=== PATIENT | male | born 1965 | race Hispanic/Latino ===

== ENCOUNTER 2019-01-28 14:00 | Inpatient (IN) | payer MEDICARE, MEDICAID ==
[2019-01-28] MEDS ORDERED: Succinylcholine Chloride 20 MG/ML 10 ml SYRINGE FS ONE ×2 (14:13→14:21)
[2019-01-28] MEDS ORDERED: fentaNYL Citrate/PF 2,000 MCG in Sodium Chloride 0.9% 60 ML IV SCH ×2 (14:21→17:37)
[2019-01-28] MEDS ORDERED: Acetaminophen 325 MG/10.15 ML UDCUP ONE (14:28)
[2019-01-28] MEDS ORDERED: Acetaminophen 650 MG Suppository ONE (14:28)
[2019-01-28] MEDS ORDERED: Acetaminophen 325 MG Suppository ONE (14:28)
[2019-01-28 14:35] LABS: Actual Bicarbonate (HCO3a) 22.5 mEq/L (22-28); Analyzer IN Cardio ER; Base Excess (BEa) -11.1 mEq/L (-2.0 to +3.0); Calcium, Ionized 1.16 mmol/L (1.12-1.30); Carboxyhemoglobin (COHb) 2.4 gm% (0.0-3.0); O2 Tension (PaO2) 96.3 mmHg (80.0-100.0); Potassium - ABG Lab 5.12 mmol/L (3.70-5.30)
[2019-01-28 14:36] LABS: CO2 Tension 91.1 mmHg (35.0-45.0); pH, Arterial 7.01 (7.35-7.45)
[2019-01-28 14:37] LABS: ALV-art Gradient 502.825 (0-20); Puncture Site RBRACH
[2019-01-28] MEDS ORDERED: Midazolam HCl 5 mg/ml Vial ONE ×2 (14:37→15:12)
[2019-01-28 14:38] LABS: #Basophils 0.1 thou/uL (0.0-0.2); #Eosinphils 0.2 thou/uL (0.0-0.7); #Lymphocytes 2.1 thou/uL (1.20-3.40); #Monocytes 0.7 thou/uL (0.11-0.59); #Neutrophils 9.3 thou/uL (1.40-6.50); %Basophils 0.8 % (0.0-1.0); %Eosinophils 1.3 % (0.0-10.0); %Lymphocytes 16.9 % (21.0-51.0); Hemoglobin 15.2 g/dL (14.0-18.0); Mean Corpuscular HGB CONC 31.1 g/dL (32.0-36.0); Mean Corpuscular Hemoglobin 32.1 pg (27.0-31.0); RBC Distribution Width 12.7 % (11.5-14.5); Red Blood Cell (RBC) Count 4.73 mill/uL (4.70-6.10); White Blood Cell (WBC) Count 12.4 thou/uL (4.8-10.8)
--- NOTE | 2019-01-28 14:45 | RAD ---
FRONTAL VIEW CHEST: 01/28/19 COMPARISON: 12/11/18 INDICATION: Emergency exam, difficulty breathing. FINDINGS: There is prominent edema. Enlargement of the cardiac silhouette and pulmonary vasculature. Probable b ilateral pleural fluid present. Left sided AICD remains. There is extensive artifact limiting detail. IMPRESSION: Findings favor decompensated CHF. Superimposed opacity related to pneumonia/pneumonitis not excluded. Recommend clinical correlation as well as imaging follow-up. POS: [facility]
[2019-01-28 14:49] LABS: Large Platelets SLIGHT; MDiff Complete? YES; Mean Platelet Volume 11.5 fL (7.4-10.4); Platelet Count 155 thou/uL (130-400); Platelet Morphology Comment Appears Adequate; RBC Morphology Normal
[2019-01-28 14:51] LABS: ALT (SGPT) 120 U/L (8-55); AST (SGOT) 153 U/L (5-34); Albumin 4.2 g/dL (3.5-5.0); Alkaline Phosphatase 138 U/L (40-150); Anion Gap 15 mmol/L (10-20); BUN (Urea Nitrogen) 10 mg/dL (8.4-25.7); Bilirubin, Total 0.9 mg/dL (0.2-1.2); Calc. Creatinine Clearance 0 mL/min (70-130); Calcium 8.8 mg/dL (7.8-10.44); Carbon Dioxide 23 mmol/L (22-29); Chloride 104 mmol/L (98-107); Estimated GFR-MDRD 66; Globulin 3.3 g/dL (2.4-3.5); Glucose 333 mg/dL (70-105); Potassium 4.6 mmol/L (3.5-5.1); Protein, Total 7.5 g/dL (6.0-8.3); Sodium 137 mmol/L (136-145)
[2019-01-28 14:54] LABS: Actual Bicarbonate (HCO3a) 24.7 mEq/L (22-28); Analyzer IN Cardio ER; Base Excess (BEa) -7.7 mEq/L (-2.0 to +3.0); Calcium, Ionized 1.15 mmol/L (1.12-1.30); Carboxyhemoglobin (COHb) 2.2 gm% (0.0-3.0); Hemoglobin (Hb) 15.9 g/dL (14.0-18.0); O2 Tension (PaO2) 172.9 mmHg (80.0-100.0); Potassium - ABG Lab 4.82 mmol/L (3.70-5.30)
[2019-01-28 14:56] LABS: CO2 Tension 85.4 mmHg (35.0-45.0); pH, Arterial 7.08 (7.35-7.45)
[2019-01-28 14:57] LABS: Puncture Site LRA
[2019-01-28 15:01] LABS: Bilirubin Negative (Negative); Blood, Urine 2+ (Negative); Clarity Extra Turbid (Clear); Glucose, Urine (Dipstick) 500 mg/dL (Negative); Leukocyte 25 Leu/uL (Negative); Nitrite Negative (Negative); Protein, Urine (Dipstick) 300 mg/dL (Neg-Trace)
[2019-01-28 15:06] LABS: Bacteria/HPF None Seen HPF (None Seen); RBC/HPF 0-3 HPF (0-3); Sperm/HPF 4+ HPF (None Seen); Squamous Epithelial None Seen HPF (0-3); WBC/HPF 0-3 HPF (0-3)
[2019-01-28] MEDS ORDERED: Propofol 1,000 MG/100 ML VIAL IV ONE ×2 (15:12→16:39)
[2019-01-28] MEDS ORDERED: Piperacillin/Tazobactam 4.5 GM VIAL ONE (15:20)
[2019-01-28] MEDS ORDERED: Vancomycin HCl 1.5 GM in Sodium Chloride 0.9% 250 ML 300 ML IVPB SCH (15:30)
--- NOTE | 2019-01-28 15:59 | CT ---
CT BRAIN WITHOUT CONTRAST: 01/28/19 HISTORY: Seizure, diaphoresis, CVA, left sided deficits. COMPARISON: 09/26/17. Old large right MCA infarction is again seen. The ventricular size is stable and the basilar cisterns patent. No evidence of acute infarct, hemorrhage, midline shift or abnormal extra-axial fluid collections are seen. The bony calvarium is intact. There is mucosa disease in the paranasal sinuses. IMPRESSION: No CT evidence of acute intracranial process. POS: [facility]
--- NOTE | 2019-01-28 16:17 | RAD ---
CHEST ONE VIEW: 01/28/19 HISTORY: Chest pain, shortness of breath. COMPARISON: Chest radiograph same day. FINDINGS: The AICD/pacer is in place. There is asymmetric right perihilar opacity. Moderate right pleural effu hiral. No definite left sided opacity is appreciated. Enteric tube tip below diaphragm out of field of view. There is what appears to be an endotracheal tu be with tip above the madie approximately 3 cm. IMPRESSION: 1. Large right perihilar opacity concerning for multifocal right sided pneumonia and layering pa rapneumonic effusion. 2. Cardiomegaly and mild pulmonary venous congestion. 3. Enteric tube tip below diaphragm out of field of view. 4. Endotracheal tube tip above the madie approximately 3 cm. POS: HOME
[2019-01-28] MEDS ORDERED: Sodium Chloride 0.9% 1,000 ML IV SCH (17:30)
[2019-01-28] MEDS ORDERED: Ventilator Sedation Protocol 1 EACH FS ONE (17:30)
[2019-01-28] MEDS ORDERED: Morphine 2 MG/ML SYRINGE SLOW IVP PRN (17:37)
[2019-01-28] MEDS ORDERED: Propofol BOLUS 1,000 MG/100 ML VIAL IV PRN (17:37)
[2019-01-28] MEDS ORDERED: Fentanyl BOLUS 250 ML IVPB PRN (17:37)
[2019-01-28] MEDS ORDERED: Propofol 1,000 MG/100 ML VIAL IV PRN (17:37)
[2019-01-28] MEDS ORDERED: Lorazepam 2 MG/ML VIAL SLOW IVP PRN (17:37)
[2019-01-28] MEDS ORDERED: DISCONTINUE PREVIOUS NARCOTIC PAIN MEDICATIONS AND BENZODIAZEPINES FS SCH (17:37)
[2019-01-28] MEDS: cefTRIAXone\\ROCEPHIN 1 GM in Sodium Chloride 0.9% 100 ML IVPB SCH (18:23)
[2019-01-28] MEDS ORDERED: Bisacodyl 10 MG SUPP PR PRN (18:55)
[2019-01-28] MEDS ORDERED: CCU Electrolyte Replacement 1 EACH IVPB ONE (18:55)
[2019-01-28] MEDS ORDERED: Acetaminophen 650 MG/20.3 ML UDCUP PO PRN (18:55)
[2019-01-28] MEDS ORDERED: SYSTANE 3.5 GM TUBE EA EYE PRN (18:55)
[2019-01-28] MEDS ORDERED: Acetaminophen 650 MG Suppository PR PRN (18:55)
[2019-01-28] MEDS ORDERED: Insulin Regular 300 UNITS/3 ML VIAL SC PRN ×2 (18:55)
[2019-01-28] MEDS ORDERED: Dextrose 50% Abboject 50 ML SYRINGE SLOW IVP PRN (18:59)
[2019-01-28] MEDS ORDERED: Dextrose 5% in Water 1,000 ML IV PRN (18:59)
[2019-01-28] MEDS ORDERED: Furosemide 100 MG in Sodium Chloride 0.9% 90 ML IVPB SCH (19:00)
[2019-01-28] MEDS ORDERED: Magnesium Oxide 400 MG TAB PO PRN ×2 (19:12)
[2019-01-28] MEDS ORDERED: Magnesium 2 GM/50 ML 2 GM in Premix Bag 1 BAG IVPB PRN (19:12)
[2019-01-28] MEDS ORDERED: CCU ELECTROLYTE REPLACEMENT PROTOCOL FS PRN (19:12)
[2019-01-28] MEDS ORDERED: Potassium Chloride 40 MEQ in Premix Bag 1 BAG IVPB PRN (19:12)
[2019-01-28] MEDS ORDERED: Potassium Chloride 40 MEQ in Sodium Chloride 0.9% 250 ML 250 ML IVPB PRN (19:12)
[2019-01-28] MEDS ORDERED: Potassium Phosphate 9 MMOL in Sodium Chloride 0.9% 100 ML IVPB PRN (19:12)
[2019-01-28] MEDS ORDERED: Potassium Phosphate 15 MMOL in Sodium Chloride 0.9% 250 ML 250 ML IV PRN (19:12)
[2019-01-28] MEDS ORDERED: PHOS-NAK 1 PKT PACK PO PRN ×2 (19:12)
[2019-01-28] MEDS ORDERED: Potassium Chloride 20 MEQ TAB PO PRN (19:12)
[2019-01-28] MEDS ORDERED: Potassium Phosphate 12 MMOL in Sodium Chloride 0.9% 250 ML 250 ML IV PRN (19:12)
[2019-01-28 19:22] LABS: CKMB 3.9 ng/mL (0-6.6)
--- NOTE | 2019-01-28 19:37 | HP ---
PRIMARY CARE PHYSICIAN: Alfredo Bojorquez MD. PRIMARY CHAIR: [place]. CHIEF COMPLAINT: Seizure. HISTORY OF PRESENT ILLNESS: The patient is a 54-year-old male with congestive heart failure, status post AICD, coronary artery disease, history of CVA with residual right-sided weakness, ongoing tobacco and alcohol abuse, atrial fibrillation, on anticoagulation, hypertension, diabetes mellitus type 2, and seizure disorder, was brought in by EMS after an episode of seizure. History obtained from his previous record as well as discussion with sister who is the DPOA. The patient currently lives at home with his family. He usually goes to the [facility] every day. Earlier today, he was found to have a seizure at the [facility]. He was short of breath and diaphoretic per EMS report. He was brought in to the emergency room on a nonrebreather. He was subsequently intubated in the emergency room. No information is available from the patient. He appeared normal to the family earlier today. There is no lower extremity swelling reported. PAST MEDICAL HISTORY: 1. Coronary artery disease, status post stent placement. He had a last cardiac catheterization in September 2017 that showed 40% to 50% stenosis in the left circumflex, 40% stenosis in the RCA, 60% to 70% stenosis in the LAD. 2. Chronic systolic heart failure, status post AICD that was inserted in 2007, hypertension. 3. Ongoing alcohol abuse. 4. Diabetes mellitus type 2. 5. Seizure disorder. 6. Ongoing tobacco abuse. 7. History of large right MCA distribution massive CVA 11 years ago with expressive aphasia and left hemiparesis . He had a feeding tube that was later discontinued. He stayed in the [facility] for 2 years. He currently ambulates without any assistance. He does not have any swallowing difficulty at this time per family report. 8. Chronic atrial fibrillation, on anticoagulation. PAST SURGICAL HISTORY: 1. AICD placement. 2. Cardiac catheterization. 3. PEG tube placement with subsequent removal. ALLERGIES: NO KNOWN DRUG ALLERGIES. CURRENT HOME MEDICATIONS: Family to bring accurate list of medications. FAMILY HISTORY: Negative for premature coronary artery disease. SOCIAL HISTORY: The patient is . He smokes on a daily basis. He drinks 2 beers every day. He is full code and surrogate decision maker is his sister at the bedside. REVIEW OF SYSTEMS: Cannot be obtained from the patient due to current cognitive status. PHYSICAL EXAMINATION: VITAL SIGNS: On ER arrival, temperature 101.4 rectally, respirations of 34, pulse rate of 110, blood pressure of 195/133, O2 saturation 93% on rebreather. GENERAL: A 54-year-old male, intubated, and sedated on mechanical ventilation. HEENT: Head, atraumatic and normocephalic. Sclerae anicteric. Moist mucous membranes. Endotracheal tube noted. NECK: Supple. JVD elevated. No carotid bruit. LUNGS: Bibasilar rales with scattered rhonchi. Minimal wheezing. Lungs were symmetrical. HEART: S1, S2 present. Regular. A 2/6 systolic murmur over the mitral area. ABDOMEN: Soft. Bowel sounds present. No rebound or guarding. No costovertebral angle tenderness. EXTREMITIES: Trace edema in bilateral lower extremity. No calf tenderness. SKIN: Warm and dry. LYMPH NODES: No palpable lymph nodes in the neck. PERIPHERAL VASCULAR: Radial pulses palpable bilaterally. MUSCULOSKELETAL: No joint swelling or tenderness. LABORATORY DATA: ABGs showed pH of 7.01 with pCO2 of 91.1 and PO2 of 96.3. Bicarbonate 22.5 on 100% non-rebreather. WBC 12.4 with platelet count 155, MCV 103, MCH 32.1. Chemistry showed sodium 137, potassium 4.6, chloride 104, bicarb 23, BUN 10, creatinine 1.1, glucose of 333, AST 153, ALT 120, BNP was 2805. IMAGING DATA: Chest x-ray by my review showed pulmonary vascular congestion with possible infiltrate. EKG by my review showed paced rhythm. CT scan of the brain was negative for acute findings. IMPRESSION: 1. Acute hypoxic and hypercapnic respiratory failure secondary to congestive heart failure/pneumonia. 2. Acute on chronic systolic/diastolic heart failure exacerbation. 3. Pneumonia, suspected pneumococcal. 4. Seizure, probably secondary to acute hypoxic and hypercapnic respiratory failure secondary to congestive heart failure/pneumonia. 5. History of seizure disorder, on Depakote. 6. Hypertension. 7. Diabetes mellitus type 2. 8. Chronic atrial fibrillation, on anticoagulation. 9. Coronary artery disease. 10. History of large right MCA distribution massive CVA 11 years ago with expressive aphasia and left hemiparesis. 11. Ongoing alcohol/tobacco abuse. 12. Elevated LFTs probably secondary to passive hepatic congestion. 13. Chronic kidney disease, stage 2. 14. Macrocytosis probably secondary to alcoholism. PLAN: The patient will be monitored in the intensive care unit. We will continue ventilation sedation protocol. Continue mechanical ventilation. We will start gentle Lasix drip. Consult Critical Care. Empiric antibiotics for pneumonia. We will check ammonia in a.m. Continue aspirin, Plavix, and Eliquis per ER medication list. Insulin sliding scale. We will verify other home medications. We will start thiamine, folic acid, and multivitamin. Echocardiogram will be obtained. Cardiology will be consulted. We will check labs on a daily basis. Plan was discussed with sister at the bedside. They stated understanding. Job ID: [id number] MTDD
[2019-01-28] MEDS: Amiodarone 200 MG TAB PER TUBE SCH (20:09)
[2019-01-28] MEDS: Apixaban 2.5 MG TAB PER TUBE SCH (20:09)
[2019-01-28] MEDS: Famotidine/PF 20 mg/2ml Vial SLOW IVP SCH (20:10)
[2019-01-28] MEDS ORDERED: Divalproex Sodium 250 MG (DR) TAB PER TUBE SCH (21:00)
[2019-01-29 05:24] LABS: ALT (SGPT) 81 U/L (8-55); AST (SGOT) 59 U/L (5-34); Albumin 3.2 g/dL (3.5-5.0); Alkaline Phosphatase 96 U/L (40-150); Anion Gap 10 mmol/L (10-20); Bilirubin, Direct 0.5 mg/dL (0.1-0.3); Calcium 8.3 mg/dL (7.8-10.44); Carbon Dioxide 25 mmol/L (22-29); Chloride 110 mmol/L (98-107); Magnesium 1.6 mg/dL (1.6-2.6); Potassium 3.2 mmol/L (3.5-5.1); Protein, Total 5.8 g/dL (6.0-8.3); Sodium 142 mmol/L (136-145)
[2019-01-29 05:30] LABS: Phosphorus 1.9 mg/dL (2.3-4.7)
[2019-01-29 05:31] LABS: BUN (Urea Nitrogen) 10 mg/dL (8.4-25.7); CK (CPK) 195 U/L (30-200); Calc. Creatinine Clearance 137 mL/min (70-130); Estimated GFR-MDRD Greater than 90; Glucose 106 mg/dL (70-105)
[2019-01-29 05:51] LABS: Mean Corpuscular Volume 99.2 fL (78.0-98.0)
[2019-01-29 05:53] LABS: #Eosinphils 0.1 thou/uL (0.0-0.7); #Lymphocytes 1.1 thou/uL (1.20-3.40); #Monocytes 0.4 thou/uL (0.11-0.59); #Neutrophils 3.7 thou/uL (1.40-6.50); %Basophils 0.8 % (0.0-1.0); %Eosinophils 1.5 % (0.0-10.0); %Lymphocytes 20.7 % (21.0-51.0); %Monocytes 8.2 % (0.0-10.0); %Neutrophils 68.8 % (42.0-75.0); Band 8 % (5-11); Eosinophils 4 % (0-10); Hemoglobin 12.8 g/dL (14.0-18.0); Lymphocytes 19 % (21-51); MDiff Complete? YES; Mean Corpuscular HGB CONC 32.3 g/dL (32.0-36.0); Mean Platelet Volume 11.1 fL (7.4-10.4); Monocytes 5 % (0-10); Neutrophil 63 % (42-75); Platelet Count 88 thou/uL (130-400); Platelet Morphology Comment Appears Decreased; RBC Distribution Width 12.7 % (11.5-14.5); White Blood Cell (WBC) Count 5.3 thou/uL (4.8-10.8)
[2019-01-29 07:09] LABS: Actual Bicarbonate (HCO3a) 23.3 mEq/L (22-28); Base Excess (BEa) 1.9 mEq/L (-2.0 to +3.0); CO2 Tension 27.8 mmHg (35.0-45.0); Calcium, Ionized 1.08 mmol/L (1.12-1.30); Carboxyhemoglobin (COHb) 1.2 gm% (0.0-3.0); Hemoglobin (Hb) 13.2 g/dL (14.0-18.0); O2 Tension (PaO2) 135.3 mmHg (80.0-100.0); Potassium - ABG Lab 3.32 mmol/L (3.70-5.30); pH, Arterial 7.54 (7.35-7.45)
[2019-01-29 07:20] LABS: Puncture Site RR
--- NOTE | 2019-01-29 07:48 | HP ---
HISTORY OF PRESENT ILLNESS: Mr. Madrigal is a 54-year-old obese gentleman, who apparently was at a senior daycare center when he apparently had a seizure activity and is brought into the hospital with respiratory distress and failure, where he is intubated. He now is going to be transferred to the ICU. The patient has been in and out of the hospital numerous times. There are several sitters at the bedside, who tells me that he has had a previous CVA with left-sided residual weakness, evidence of some expressive aphasia. Continues to smoke a pack a day. He was in the ER on 12/11/2018 with weakness. PAST MEDICAL HISTORY: 1. Congestive heart failure. 2. COPD. 3. Previous respiratory failure. 4. Previous pneumonia. 5. Diabetes. 6. Hypertension. 7. Depression. 8. Reflux. 9. Cardiac arrhythmias. 10. Atrial fibrillation. PAST SURGICAL HISTORY: Including an AICD that I see. MEDICATION: Home medicine included: 1. Metformin 1000 two a day. 2. Losartan 50 a day. 3. Potassium. 4. Divalproex one tablet 250. 5. Lasix 40 two a day. 6. ISMO 30. 7. . 8. Zoloft 50. 9. Simvastatin 10. 10. Omeprazole. 11. Coreg 3.125. 12. Amiodarone 200. 13. Aspirin. 14. Insulin. SOCIAL HISTORY: Tobacco as noted. Alcohol minimal. REVIEW OF SYSTEMS: Unobtainable. He is intubated, sedated. PHYSICAL EXAMINATION: VITAL SIGNS: Saturations are 95% on the vent, pulse is 80, blood pressure 110/80. CHEST: Extensive rhonchi and crackles. CARDIAC: Normal S1, S2. No gallops. ABDOMEN: No masses. NEUROLOGICAL: He is sedated. His pupils are equal. LABORATORY DATA: White count 12,000, H and H of 15 and 48, platelet count is normal. His PO2 is 172, pCO2 85, pH 7.08. His creatinine is normal, glucose 333, ALT is elevated at 120, AST is 153. Urine is turbid. His chest x-ray prior to intubation shows cardiomegaly with bilateral interstitial alveolar infiltrates consistent with CHF. IMPRESSION: 1. Respiratory failure, congestive heart failure. 2. Severe respiratory acidosis. 3. Morbid obesity and probably sleep apnea. 4. Cerebrovascular accident. 5. Atrial fibrillation. 6. Seizure activity. PLAN: The patient will be transferred to the ICU. Empiric antibiotics, neb treatments, and supportive care. Input from Cardiology. Serial exam. Wean when stable. 45-minute critical time. Job ID: [id number]
[2019-01-29] MEDS: Folic Acid 1 MG TAB PER TUBE SCH (07:53)
[2019-01-29] MEDS: Thiamine 100 MG TAB PER TUBE SCH (07:53)
[2019-01-29] MEDS: Amiodarone 200 MG TAB PER TUBE SCH (07:53)
[2019-01-29] MEDS: Clopidogrel Bisulfate 75 MG TAB PER TUBE SCH (07:53)
[2019-01-29] MEDS: Famotidine/PF 20 mg/2ml Vial SLOW IVP SCH (07:54)
[2019-01-29] MEDS: Apixaban 2.5 MG TAB PER TUBE SCH ×2 (07:55→20:17)
--- NOTE | 2019-01-29 08:04 | RAD ---
Chest AP view INDICATION: Intubation COMPARISON: January 28, 2019 FINDINGS: Tubes and Lines: Stable. Lungs:Perihilar airspace opacities, right greater than left are stable. Cardiac silhouette pulmonary vasculature:Cardiomegaly is stable and pulmonary vascular congestion rem ains prominent. Pleural spaces: Small pleural effusions persist Upper abdomen:No abnormality seen. Osseous structures: No acute abnormality. IMPRESSION: Stable exam. No pneumothorax
[2019-01-29] MEDS ORDERED: DC Sedation Protocol FS ONE (08:21)
[2019-01-29] MEDS ORDERED: Sodium Chloride 0.9% 1,000 ML IV SCH (08:24)
[2019-01-29] MEDS ORDERED: PHOS-NAK 1 PKT PACK PO SCH (08:30)
--- NOTE | 2019-01-29 08:53 | PRG ---
DATE OF SERVICE: 01/29/2019 SUBJECTIVE: This morning, he is awake, alert, responsive to my surprise. X-ray shows much improvement in his congestive heart failure, so we will stop the sedation. OBJECTIVE: NEUROLOGIC: He is awake, alert, and responsive. He is moving all 4 extremities. VITAL SIGNS: Pulse 74, blood pressure 120/76, saturations 100%, respiratory rate 18. CHEST: Reveals decreased breath sounds. No wheezing. CARDIAC: Normal S1, S2. No gallops. ABDOMEN: No masses. His I's and O's over the last 24 hours have been negative 425. LABORATORY DATA: Shows white count 5000, H and H 12 and 39, and platelet count is low at 88. Blood gas, PO2 135, pCO2 27, pH 7.54. Lytes are normal. Potassium 3.2. Liver function improved. IMPRESSION: 1. Respiratory failure, congestive heart failure, cardiomyopathy. 2. Seizure disorder. 3. Diabetes. PLAN: I will try and wean and extubate today. Otherwise, continue PT, supportive care. Await input from Cardiology. One-half hour of critical care time. Job ID: [id number]
[2019-01-29] MEDS ORDERED: Multivits W-Minerals Liquid 15mL UDCUP PER TUBE SCH (09:00)
[2019-01-29] MEDS ORDERED: DIVALPROEX 125 MG PO SCH (09:00)
[2019-01-29] MEDS ORDERED: Multivit, Therapeutic 1 TAB PER TUBE SCH (09:00)
[2019-01-29] MEDS ORDERED: Aspirin Chewable 81 MG TAB PER TUBE SCH (09:00)
[2019-01-29] MEDS ORDERED: Divalproex Sodium 125 mg Sprinkle Capsule PER TUBE SCH (09:00)
--- NOTE | 2019-01-29 10:27 | PRG ---
DATE OF SERVICE: 01/29/2019 SUBJECTIVE: A 54-year-old male with congestive heart failure, coronary artery disease, history of CVA with ongoing tobacco and alcohol abuse, hypertension, diabetes, and atrial fibrillation, on anticoagulation, was brought in to the emergency room by EMS with seizure. Due to persistent hypoxemia with altered mentation, he was intubated in the emergency room. He was placed on mechanical ventilation overnight. The patient was extubated this a.m. He denies any new complaints at this time. He has chronic expressive aphasia. He is following commands. He denies any chest pain, palpitations, nausea, or vomiting. CURRENT MEDICATIONS: Reviewed. OBJECTIVE: VITAL SIGNS: Temperature 98.5, blood pressure of 121/70, respirations of 21, and O2 saturation of 97% on 3 L nasal cannula. GENERAL: A 54-year-old male in no apparent distress. LUNGS: Showed bibasilar rales with scattered rhonchi. No significant wheezing. No significant accessory muscle use. HEART: S1 and S2 present. Regular rate and rhythm. No rubs or gallops. ABDOMEN: Soft and nontender. Bowel sounds present. No rebound or guarding. EXTREMITIES: Trace edema in bilateral lower extremity. PSYCHIATRY: Normal affect. Alert, awake, and oriented x3. NEUROLOGIC: The patient has chronic left-sided weakness, which has unchanged. He has expressive aphasia. Telemetry monitoring by my review showed sinus rhythm. Weight of 194 pounds. Intake of 1200, output 2395. IMAGING STUDIES: Chest x-ray by my review showed some improvement in pulmonary vascular congestion with small pleural effusions. LABORATORY FINDINGS: WBC 5.3 with hemoglobin 12.8, platelet down to 88. ABG showed pH of 7.54 with pCO2 of 27.8, and pO2 135 with bicarbonate 23. Potassium 3.2, phosphorus 1.9, and magnesium of 1.6. Cortisol of 5. Urinalysis showed 4+ bacteria without any wbc's. IMPRESSION: 1. Acute hypoxic and hypercapnic respiratory failure secondary to acute on chronic systolic/diastolic heart failure exacerbation along with pneumonia, suspected pneumococcal. 2. Seizure, probably secondary to acute hypoxic and hypercapnic respiratory failure. 3. Sepsis secondary to pneumonia, suspected pneumococcal. 4. Thrombocytopenia. 5. Diabetes mellitus, type 2. 6. Chronic atrial fibrillation, on anticoagulation with Eliquis. 7. Coronary artery disease, status post stent placement, on aspirin and Plavix. 8. History of large right middle coronary artery distribution cerebrovascular accident 11 years ago with chronic expressive aphasia as well as left hemiparesis. 9. Ongoing alcohol and tobacco abuse. 10. Chronic kidney disease, stage 2. 11. Macrocytosis probably secondary to alcoholism. 12. History of seizure disorder, on Depakote. PLAN: We will continue IV ceftriaxone. All of his medications will be changed to p.o. We will recheck platelets later today. We will discuss with Cardiology if it is okay to continue anticoagulation with thrombocytopenia. We will recheck labs in a.m. echocardiogram is pending at this time. We will continue insulin sliding scale. His ammonia level was normal. Lasix has been changed to p.o. We will change Pepcid to p.o. Plan of care was discussed with the patient. We will update family with the results of his test. Job ID: [id number]
[2019-01-29] MEDS: Aspirin 81 mg Enteric Coated Tablet PO SCH (10:51)
[2019-01-29] MEDS: Furosemide 40 MG TAB PO SCH (10:57)
[2019-01-29] MEDS: Carvedilol 6.25 MG TAB PO SCH ×2 (10:57→20:18)
[2019-01-29] MEDS: Divalproex Sodium 125 mg Sprinkle Capsule PER TUBE SCH ×2 (10:58→20:19)
[2019-01-29] MEDS ORDERED: Amiodarone 200 MG TAB PO SCH (11:15)
--- NOTE | 2019-01-29 11:34 | CON ---
DATE OF CONSULTATION: Critical care note time 30 minutes. HISTORY OF PRESENT ILLNESS: The patient is an unfortunate 54-year-old gentleman with a history of severe cardiomyopathy, who presents with dyspnea and was noted to have suffered a seizure. The patient has a long history of cardiomyopathy. He is followed primarily at [facility] by [employer]. The patient has had placement of automatic implantable cardiac defibrillator. He apparently underwent a cardiac catheterization over a year ago, which revealed to have moderate CAD and has been on medical therapy. The patient also has history of atrial fibrillation, has been treated with amiodarone. The patient is also on chronic anticoagulation therapy. The patient states he has been compliant with his medications. The patient presented with a seizure. He was noted to be dyspneic. The patient denied having any chest discomfort. PAST MEDICAL HISTORY: 1. Coronary artery disease. 2. Cardiomyopathy. 3. Hypertension. 4. Diabetes mellitus. 5. Dyslipidemia. 6. History of atrial fibrillation. 7. History of AICD placement. 8. History of CVA. PAST SURGICAL HISTORY: None. SOCIAL HISTORY: The patient continues to abuse tobacco. ALLERGIES: NO KNOWN DRUG ALLERGIES. MEDICATIONS: See nursing list. PHYSICAL EXAMINATION: GENERAL: This is a well-developed gentleman, in no acute distress. VITAL SIGNS: Blood pressure of 120/70. NECK: Showed no jugular venous distention. LUNGS: Have crackles throughout both lung lorenzana with diffuse wheezing. HEART: Regular rate and rhythm. Normal S1 and S2 with a 1/6 systolic murmur. ABDOMEN: Distended. EXTREMITIES: Show mild edema. LABORATORY RESULTS: Sodium 142, potassium 3.2, chloride 110, bicarb 25, BUN 10, creatinine 0.76, glucose is 106, AST 59. Troponin was 0.049. His BNP was 2805. His white blood cell count is 5.3, hemoglobin 12.8, hematocrit 39.6, and his platelets were 88. Chest x-ray revealed to have cardiomegaly with diffuse bilateral edema, right greater than left. IMPRESSION: 1. Congestive heart failure. 2. History of cardiomyopathy. 3. History of coronary artery disease. 4. History of atrial fibrillation. 5. History of cerebrovascular accident. 6. History of automatic implantable cardioverter-defibrillator placement. 7. Diabetes mellitus. 8. Dyslipidemia. PLAN: This gentleman presents with congestive heart failure and a seizure. From a cardiac standpoint, would recommend increasing the dose of his losartan. We would also place the patient on spironolactone since he has class IV congestive heart failure. The patient also has a history of coronary artery disease and should be on high dose statin. We will switch the patient to Lipitor. We will obtain records from his [employer]. The patient's prognosis is guarded. Please call my office. Job ID: [id number]
[2019-01-29 12:24] LABS: Hemoglobin 13.6 g/dL (14.0-18.0); Platelet Count 92 thou/uL (130-400)
[2019-01-29] MEDS: Nicotine 14 MG PATCH TOP SCH (14:58)
[2019-01-29] MEDS: cefTRIAXone\\ROCEPHIN 1 GM in Sodium Chloride 0.9% 100 ML IVPB SCH (16:29)
[2019-01-29] MEDS: metFORMIN 500 MG TAB PO SCH ×2 (16:34→17:44)
[2019-01-29] MEDS: Amiodarone 200 MG TAB PO SCH (20:17)
[2019-01-29] MEDS: Atorvastatin Calcium 40 MG TAB PO SCH (20:18)
[2019-01-29] MEDS: Famotidine 20 MG TAB PO SCH (20:18)
[2019-01-29] MEDS: Losartan 25 MG TAB PO SCH (20:19)
[2019-01-30 05:08] LABS: Anion Gap 11 mmol/L (10-20); BUN (Urea Nitrogen) 10 mg/dL (8.4-25.7); Calc. Creatinine Clearance 147 mL/min (70-130); Calcium 8.3 mg/dL (7.8-10.44); Carbon Dioxide 24 mmol/L (22-29); Chloride 108 mmol/L (98-107); Estimated GFR-MDRD Greater than 90; Glucose 121 mg/dL (70-105); Magnesium 1.7 mg/dL (1.6-2.6); Potassium 3.4 mmol/L (3.5-5.1); Sodium 140 mmol/L (136-145)
[2019-01-30 05:10] LABS: Phosphorus 2.9 mg/dL (2.3-4.7)
[2019-01-30 05:45] LABS: #Eosinphils 0.2 thou/uL (0.0-0.7); #Lymphocytes 0.8 thou/uL (1.20-3.40); #Monocytes 0.5 thou/uL (0.11-0.59); #Neutrophils 4.6 thou/uL (1.40-6.50); %Basophils 0.1 % (0.0-1.0); %Eosinophils 2.7 % (0.0-10.0); %Lymphocytes 13.6 % (21.0-51.0); %Monocytes 8.3 % (0.0-10.0); %Neutrophils 75.3 % (42.0-75.0); Hemoglobin 13.1 g/dL (14.0-18.0); Mean Corpuscular HGB CONC 31.6 g/dL (32.0-36.0); Mean Corpuscular Hemoglobin 32.1 pg (27.0-31.0); Platelet Count 101 thou/uL (130-400); Red Blood Cell (RBC) Count 4.07 mill/uL (4.70-6.10); White Blood Cell (WBC) Count 6.1 thou/uL (4.8-10.8)
--- NOTE | 2019-01-30 07:38 | RAD ---
Portable frontal chest radiograph: 01/30/2019 COMPARISON: 01/29/2019 HISTORY: Respiratory distress FINDINGS: The endotracheal tube has been removed. Stable enlargement of the cardiac silhouette. Stabl e transvenous AICD. Stable small bilateral pleural effusions. Pulmonary vascular congestion with diffuse interstitial pro minence suggesting pulmonary edema again noted, right greater than left. Perihilar airspace disease again noted, right greater than left. IMPRESSION: Interval removal of endotracheal tube. Findings suggesting stable pulmonary edema.
[2019-01-30] MEDS: Aspirin 81 mg Enteric Coated Tablet PO SCH (07:40)
[2019-01-30] MEDS: Carvedilol 6.25 MG TAB PO SCH ×2 (07:40→20:03)
[2019-01-30] MEDS: Spironolactone 25 MG TAB PO SCH (07:40)
[2019-01-30] MEDS: Famotidine 20 MG TAB PO SCH ×3 (07:41→20:05)
[2019-01-30] MEDS: metFORMIN 500 MG TAB PO SCH ×2 (07:41→17:58)
[2019-01-30] MEDS: Furosemide 40 MG TAB PO SCH (07:41)
[2019-01-30] MEDS: Losartan 25 MG TAB PO SCH ×3 (07:41→20:06)
[2019-01-30] MEDS: Amiodarone 200 MG TAB PO SCH ×3 (07:41→20:02)
[2019-01-30] MEDS: Thiamine 100 MG TAB PER TUBE SCH (07:41)
[2019-01-30] MEDS: Clopidogrel Bisulfate 75 MG TAB PER TUBE SCH (07:41)
[2019-01-30] MEDS: Folic Acid 1 MG TAB PER TUBE SCH (07:41)
[2019-01-30] MEDS: Multivit, Therapeutic 1 TAB PO SCH (07:41)
--- NOTE | 2019-01-30 08:24 | PRG ---
DATE OF SERVICE: 01/30/2019 SUBJECTIVE: This morning, he is awake, alert, and responsive. He said he is feeling better. X-ray still shows CHF findings. He was extubated yesterday without any issues. OBJECTIVE: VITAL SIGNS: Temperature 98, pulse 72, respirations 24, saturations 93%, blood pressure 140/87. CHEST: Minimal crackles. No wheezing. CARDIAC: Normal S1 and S2. No gallops. ABDOMEN: No masses. LABORATORY DATA: Platelet count is 101. White count is normal. Lytes are normal. IMPRESSION: Congestive heart failure, respiratory failure, encephalopathy, diabetes, morbid obesity. PLAN: He has much improved. I am discontinuing his antibiotics. No evidence to suspect any infection. Continue cardiac care. We will follow while in the ICU. Job ID: [id number]
[2019-01-30] MEDS ORDERED: Furosemide 40 MG/4 ML VIAL ONE (08:43)
[2019-01-30] MEDS: Apixaban 2.5 MG TAB PER TUBE SCH ×2 (08:53→20:02)
[2019-01-30] MEDS: Divalproex Sodium 125 mg Sprinkle Capsule PER TUBE SCH ×2 (08:54→20:04)
[2019-01-30] MEDS ORDERED: Losartan 25 MG TAB PO SCH (09:00)
[2019-01-30] MEDS ORDERED: Furosemide 40 MG TAB PO SCH (09:00)
[2019-01-30] MEDS: Furosemide 40 MG/4 ML VIAL SLOW IVP SCH (14:38)
[2019-01-30] MEDS: Nicotine 14 MG PATCH TOP SCH (14:38)
[2019-01-30] MEDS: Atorvastatin Calcium 40 MG TAB PO SCH ×2 (20:02→20:03)
[2019-01-30] MEDS ORDERED: DC Electrolyte Protocol FS ONE (20:06)
--- NOTE | 2019-01-30 20:47 | PRG ---
DATE OF SERVICE: 01/30/2019 SUBJECTIVE: A 54-year-old male with congestive heart failure; coronary artery disease; history of CVA with ongoing tobacco and alcohol abuse; hypertension; diabetes mellitus type 2; atrial fibrillation, on anticoagulation, who presented to the emergency room with seizure. His workup was consistent with respiratory failure requiring mechanical ventilation. He was extubated yesterday. He has done well overnight. No new seizure episode reported. He denies any chest discomfort or shortness of breath at this time. OBJECTIVE: VITAL SIGNS: Temperature 97.6, pulse 70, blood pressure 131/82, O2 saturation 97% on room air. Intake of 2402, output 5. GENERAL: A 54-year-old male, in no apparent distress. LUNGS: Show diminished air entry at bilateral bases with scattered rales. HEART: S1 and S2 present. Regular rate and rhythm. ABDOMEN: Soft. Bowel sounds present. EXTREMITIES: Trace edema in bilateral lower extremities. NEUROLOGIC: Grossly nonfocal. CURRENT MEDICATIONS: Reviewed. The patient is on: 1. Amiodarone. 2. Eliquis. 3. Aspirin. 4. Lipitor. 5. Carvedilol. 6. Plavix. 7. Depakote. 8. IV Lasix. 9. Losartan. 10. Metformin. 11. Aldactone. LABORATORY FINDINGS: Hemoglobin 13.1, hematocrit 41.4. Potassium 3.4, phosphorus 2.9, magnesium 1.7. IMAGING STUDIES: Chest x-ray by my review showed pulmonary edema. Telemetry monitoring by my review showed sinus rhythm. Echocardiogram showed left ventricular ejection fraction of 10% to 15% with diastolic dysfunction, mild mitral regurgitation, mild tricuspid regurgitation. IMPRESSION: 1. Acute hypoxic and hypercapnic respiratory failure secondary to acute on chronic systolic/diastolic heart failure exacerbation. 2. Seizure secondary to #1. 3. Diabetes mellitus type 2. 4. Chronic atrial fibrillation, on anticoagulation with Eliquis. 5. Coronary artery disease, status post stent placement, on aspirin and Plavix. 6. History of large right MCA distribution cerebrovascular accident with residual expressive aphasia along with left hemiparesis. 7. Ongoing tobacco and alcohol abuse. 8. Chronic kidney disease, stage 2. 9. Macrocytosis. 10. History of seizure disorder, on Depakote. 11. Thrombocytopenia. PLAN: 1. Pneumonia has been ruled out. Antibiotics will be discontinued. We will continue IV Lasix per Cardiology. Losartan dose has been increased. Continue aspirin, Plavix, and Eliquis. Monitor platelets closely. Aldactone has been started. Alcohol cessation was emphasized. We will continue cardiac rehabilitation. 2. Home healthcare will be arranged. 3. The patient will be transferred to telemetry. 4. A.m. labs. Job ID: [id number]
[2019-01-31 04:22] VITALS: BMI 26.8
[2019-01-31] MEDS: Furosemide 40 MG/4 ML VIAL SLOW IVP SCH (05:34)
[2019-01-31 05:52] LABS: Anion Gap 12 mmol/L (10-20); BUN (Urea Nitrogen) 10 mg/dL (8.4-25.7); Calc. Creatinine Clearance 143 mL/min (70-130); Calcium 8.5 mg/dL (7.8-10.44); Carbon Dioxide 26 mmol/L (22-29); Chloride 103 mmol/L (98-107); Estimated GFR-MDRD Greater than 90; Glucose 131 mg/dL (70-105); Magnesium 1.5 mg/dL (1.6-2.6); Potassium 3.1 mmol/L (3.5-5.1); Sodium 138 mmol/L (136-145)
[2019-01-31 05:56] LABS: #Eosinphils 0.2 thou/uL (0.0-0.7); #Lymphocytes 0.9 thou/uL (1.20-3.40); #Monocytes 0.5 thou/uL (0.11-0.59); #Neutrophils 3.8 thou/uL (1.40-6.50); %Basophils 0.6 % (0.0-1.0); %Eosinophils 3.1 % (0.0-10.0); %Lymphocytes 15.9 % (21.0-51.0); %Monocytes 9.2 % (0.0-10.0); %Neutrophils 71.1 % (42.0-75.0); Hemoglobin 13.4 g/dL (14.0-18.0); Large Platelets SLIGHT; MDiff Complete? YES; Mean Corpuscular HGB CONC 31.7 g/dL (32.0-36.0); Mean Corpuscular Hemoglobin 31.5 pg (27.0-31.0); Mean Corpuscular Volume 99.4 fL (78.0-98.0); Mean Platelet Volume 10.5 fL (7.4-10.4); Platelet Count 127 thou/uL (130-400); RBC Distribution Width 12.9 % (11.5-14.5); Red Blood Cell (RBC) Count 4.25 mill/uL (4.70-6.10); White Blood Cell (WBC) Count 5.3 thou/uL (4.8-10.8)
[2019-01-31] MEDS ORDERED: Spironolactone 25 MG TAB PO SCH (08:00)
[2019-01-31] MEDS ORDERED: Magnesium Sulfate 4 GM in Sodium Chloride 0.9% 250 ML 250 ML IVPB SCH (08:15)
[2019-01-31] MEDS: Apixaban 2.5 MG TAB PER TUBE SCH (09:02)
[2019-01-31] MEDS: Amiodarone 200 MG TAB PO SCH (09:02)
[2019-01-31] MEDS: Folic Acid 1 MG TAB PER TUBE SCH (09:02)
[2019-01-31] MEDS: Divalproex Sodium 125 mg Sprinkle Capsule PER TUBE SCH (09:02)
[2019-01-31] MEDS: Losartan 25 MG TAB PO SCH (09:03)
[2019-01-31] MEDS: metFORMIN 500 MG TAB PO SCH (09:03)
[2019-01-31] MEDS: Aspirin 81 mg Enteric Coated Tablet PO SCH (09:03)
[2019-01-31] MEDS: Famotidine 20 MG TAB PO SCH (09:03)
--- NOTE | 2019-01-31 09:03 | PRG ---
DATE OF SERVICE: 01/31/2019 SUBJECTIVE: This morning, he is awake, alert, and responsive, in no distress. No shortness of breath. OBJECTIVE: VITAL SIGNS: Saturations are 92% on room air, respiratory rate 19, temperature 98, blood pressure 130/77. I's and O's have been consistently negative. CHEST: No wheezing or crackles. CARDIAC: Normal S1 and S2. No gallops. ABDOMEN: No mass. LABORATORY DATA: Lytes are normal. Potassium 3.1. White count normal. ASSESSMENT: Respiratory failure, congestive heart failure, history of seizures. PLAN: Pulmonary bennett, he is stable enough. Switched over to oral medication. Disposition as per primary care physician. Job ID: [id number]
[2019-01-31] MEDS: Thiamine 100 MG TAB PER TUBE SCH (09:04)
[2019-01-31] MEDS: Carvedilol 6.25 MG TAB PO SCH (09:04)
[2019-01-31] MEDS: Clopidogrel Bisulfate 75 MG TAB PER TUBE SCH (09:04)
[2019-01-31] MEDS: Multivit, Therapeutic 1 TAB PO SCH (09:04)
[2019-01-31] MEDS: Spironolactone 25 MG TAB PO SCH (09:37)
[2019-01-31 11:52] VITALS: BP 108/69; TEMP 97.8
--- NOTE | 2019-02-01 09:53 | DIS ---
DATE OF ADMISSION: 01/28/2019 DATE OF DISCHARGE: 01/31/2019 DISCHARGE DISPOSITION: Home. FOLLOWUP: 1. Follow up with primary care physician, Dr. Bojorquez in 1 week. 2. Follow up with Cardiology, Dr. Monk next week as scheduled. ALLERGIES: NO KNOWN DRUG ALLERGIES. INPATIENT CONSULTANTS: 1. Dr. Gen Coulter. 2. Pulmonary, Dr. Walton. DISCHARGE MEDICATIONS: 1. Folic acid 1 mg daily. 2. Lipitor 40 mg at bedtime. 3. Losartan 50 mg b.i.d. 4. Slow-Mag 64 mg b.i.d. 5. Multivitamin one tablet daily. 6. Aldactone 25 mg b.i.d. 7. Thiamine 100 mg daily. 8. Zoloft 100 mg daily. 9. Omeprazole 20 mg daily. 10. Metformin 1000 mg b.i.d. 11. Imdur ER 30 mg daily. 12. Levemir 35 units daily. 13. Depakote 250 mg b.i.d. 14. Plavix 75 mg daily. 15. Carvedilol 6.25 mg b.i.d. 16. Aspirin 81 mg daily. 17. Eliquis 2.5 mg b.i.d. 18. Amiodarone 200 mg b.i.d. The patient was seen and examined on the day of discharge. Denies any new complaints. No chest pain, shortness of breath, or palpitations reported. Vital signs on the day of discharge showed temperature 98.3, pulse 72, respirations 18, O2 saturation 100% on room air with blood pressure of 133/85. BRIEF HOSPITAL COURSE: The patient is a 54-year-old male with congestive heart failure status post AICD, coronary artery disease, history of CVA with residual right-sided weakness, ongoing tobacco and alcohol abuse, atrial fibrillation on anticoagulation, hypertension, and diabetes mellitus type 2, presented to the hospital with seizure. He was brought into the emergency room on a nonrebreather. He was subsequently intubated in the emergency room. He was placed on mechanical ventilation and was monitored in the Intensive Care Unit. His ABGs on admission showed pH of 7.01 with pCO2 of 91.1 on 100% room air. He was started on Lasix drip due to blood pressure on the lower side. Next day, he was extubated. Lasix drip was changed to IV push. He was then transferred to telemetry unit. His blood pressure medications have been optimized by Dr. Gen Coulter. He will need a repeat basic metabolic profile along with magnesium check after a week. He received 2 g IV magnesium for magnesium 1.5 at discharge. His potassium on the day of discharge is 3.1, which was replaced. He has been cleared by consultants for discharge. Echocardiogram showed ejection fraction 10% to 15% with mild dilated left atrium, diastolic dysfunction, mild mitral regurgitation, mild tricuspid regurgitation. FINAL DIAGNOSES: 1. Acute hypoxic and hypercapnic respiratory failure secondary to congestive heart failure exacerbation. 2. Suspected pneumonia on admission has been ruled out. 3. Acute on chronic systolic/diastolic heart failure exacerbation. 4. Seizure, probably secondary to #1. 5. History of seizure disorder, on Depakote. 6. Diabetes mellitus type 2. 7. Hypertension. 8. Chronic atrial fibrillation on anticoagulation. 9. Coronary artery disease. 10. 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 The patient is, however, able to ambulate without any device. 11. Ongoing alcohol and tobacco abuse. The patient was counseled. 12. Elevated LFTs secondary to passive hepatic congestion. 13. Chronic kidney disease, stage 2. 14. Macrocytosis secondary to alcoholism. 15. Mild protein calorie malnutrition. 16. Hypokalemia. 17. Hypomagnesemia. 18. Elevated troponin secondary to demand ischemia/type 2 myocardial infarction. SIGNIFICANT LABS: BNP on admission 2805, maximum troponin was 0.049. AST on admission was 153, repeat was 59; ALT on admission was 120, repeat was 81. PLAN: Plan was discussed with the patient in detail, he stated understanding. TIME SPENT WITH PATIENT: Total time coordinating the discharge of this patient was 37 minutes. The patient was extensively counseled to be compliant with fluid restriction and importance of daily weights. Job ID: [id number]
== END 2019-01-31 15:15 | disposition home health service (06) | DRG 208 ==
LOC: ERS 14:00 → CCU 16:32 → 2NO 01-30 19:28
PROVIDERS: ADMIT Internal Medicine; ATTEND Internal Medicine
PROC: 0BH17EZ Insertion of Endotracheal Airway into Trachea, Via Natural or Artificial Opening (ICD-10-PCS; principal; 2019-01-28)
PROC: 5A1935Z Respiratory Ventilation, Less than 24 Consecutive Hours (ICD-10-PCS; 2019-01-28)
DX: J96.21 Acute and chronic respiratory failure with hypoxia (principal); I50.23 Acute on chronic systolic (congestive) heart failure; I13.0 Hypertensive heart and chronic kidney disease with heart failure and stage 1 through stage 4 chronic kidney disease, or unspecified chronic kidney disease; I69.354 Hemiplegia and hemiparesis following cerebral infarction affecting left non-dominant side; I42.9 Cardiomyopathy, unspecified; G93.40 Encephalopathy, unspecified; J96.22 Acute and chronic respiratory failure with hypercapnia; J44.9 Chronic obstructive pulmonary disease, unspecified; E11.22 Type 2 diabetes mellitus with diabetic chronic kidney disease; F32.9 Major depressive disorder, single episode, unspecified; K21.9 Gastro-esophageal reflux disease without esophagitis; F17.210 Nicotine dependence, cigarettes, uncomplicated; N18.2 Chronic kidney disease, stage 2 (mild); E78.5 Hyperlipidemia, unspecified; D69.6 Thrombocytopenia, unspecified; E66.01 Morbid (severe) obesity due to excess calories; G40.909 Epilepsy, unspecified, not intractable, without status epilepticus; I25.10 Atherosclerotic heart disease of native coronary artery without angina pectoris; I48.2 Chronic atrial fibrillation; Z95.810 Presence of automatic (implantable) cardiac defibrillator; Z79.899 Other long term (current) drug therapy; Z79.4 Long term (current) use of insulin; Z79.82 Long term (current) use of aspirin; I69.320 Aphasia following cerebral infarction; Z79.01 Long term (current) use of anticoagulants; Z95.5 Presence of coronary angioplasty implant and graft; Z68.28 Body mass index [BMI] 28.0-28.9, adult
CPT/HCPCS: 31500; 36415; 36416; 51702; 70450; 71045; 80048; 80053; 80076; 81003; 81015; 82140; 82533; 82550; 82553; 82805; 83735; 83880; 84100; 84443; 84484; 85025; 93306; 93798; 94002; 94003; 94640; 96365; 96366; 96375; 96376; 99292; J0696; J1940; J2060; J2250; J2543; J2704; J3010; J3370; J3475; J3480; J3490; J7050; J7620; S0028